=== PATIENT | female | born 1950 | race Caucasian/White ===

== ENCOUNTER 2016-11-05 06:28 | Day surgery (SDC) | payer MEDICARE ==
[~2016-11-05] VITALS: Ht 160 cm; Wt 52.0 kg
[~2016-11-05 06:28] MED LIST: OXYC-360 PO; Z.0.NO CURRENT MEDS
[2016-11-05] MEDS ORDERED: SODIUM CHLOR 0.9% 1000 ML INJ 1,000 ML IV SCH (07:00)
[2016-11-05] MEDS ORDERED: MULT-65 PO (07:04)
[2016-11-05 07:05] VITALS: BP 176/72; PULSE 80; RESP 16; TEMP 98; O2SAT 98
[2016-11-05] MEDS ORDERED: ASPI1TAB93 (07:05)
[2016-11-05] MEDS ORDERED: HEPARIN-NS/PF INJ 500 ML ONE (07:58)
[2016-11-05] MEDS ORDERED: MIDAZOLAM HCL 2 MG/2 ML VIAL ONE (08:01)
[2016-11-05] MEDS ORDERED: MISC INFORMATION XX ONE (09:15)
[2016-11-05] MEDS ORDERED: BACITRACIN OINT 0.9 GM PKT TOP ONE (09:15)
[2016-11-05] MEDS ORDERED: LORazepam 2 MG/ML VIAL IV PRN (09:15)
[2016-11-05] MEDS ORDERED: LIDOCAINE HCL 1% 50 ML VIAL INFIL PRN (09:15)
[2016-11-05] MEDS ORDERED: ONDANSETRON HCL 4 MG/2 ML VIAL IV PRN (09:15)
[2016-11-05] MEDS ORDERED: ATROPINE SULFATE 1 MG/ML VIAL IV PRN (09:15)
[2016-11-05] MEDS ORDERED: SODIUM CHLOR 0.9% 250 ML INJ 250 ML IV PRN (09:15)
--- NOTE | 2016-11-05 09:25 | MA ---
cc: HELIO YOUNG MD DATE: 11/05/2016 The patient was prepped and draped in usual fashion. A 6 sheath was inserted percutaneously in the right femoral artery, 7 sheath was inserted percutaneously in the right femoral vein. Right heart cath was done with a flow-directed catheter. Coronary angiography was done with Olga preformed catheters in the left ventriculogram was done with pigtail catheters. RESULTS 1. Right atrial pressure was 3, right ventricular pressure was 25/0, wedge pressure was 9. Pulmonary artery pressure was 17/5. LV pressure was 151/4. There was really no gradient across the mitral valve. Aortic pressure was 150/67 and a gradient was present across the aortic valve. CORONARY ANGIOGRAPHY Left main coronary was normal, left anterior descending artery was normal throughout its course. Left circumflex artery was normal throughout its course. The right coronary was anatomically dominant and normal throughout its course. Left ventriculography demonstrated normal left ventricle size with an EF estimated at 60%, +2 mitral regurgitation was noted. CONCLUSION The patient demonstrates moderate mitral regurgitation with preserved PA pressures. Mitral valve repair will be discussed with cardiovascular surgery. MD MIREYA Jenkins/MJ /9:09 AM /9:17 AM
--- NOTE | 2016-11-05 09:37 | CATHPROC ---
[employer] HIS Report Study Information Study Number Admission Scheduled Start Study Start [id number] Nov 05 2016 6:28AM 11/05/2016 Nov 05 2016 7:54AM [place] Service Cardiac Catheterization Admit Source Facility Department Other [facility] - Angle Roll Operator Physician and Clinical Staff Initial Vince Camargo Personal ChefPaulina Guzman,HIMA Personal Chef Pam Perez RN Recorder Desi Antoine,RT(R) (BS) Scrub Angel Gonzales RCIS(BS) Procedures Performed Procedure Location (Site) Vessel Name Angiogram LV LV Ventricle Coronary Angiograms LCA Left Coronary Coronary Angiograms RCA Right Coronary Equipment Time Division Order Analyst Description Size Mfg Part Number Used/Scraped [id number] 08:05 CAMPOS PEREZ SWAN BULMARO CATHETER FR 7 Used *[id number] TRANSDUCER, TRUWAVE [id number] 08:05 CAMPOS PEREZ * Used W/STOCKCOCK *[id number] TRANSDUCER, TRUWAVE [id number] 08:05 CAMPOS PEREZ * Used W/STOCKCOCK *[id number] [id number] *[id number] [id number] *[id number] [id number] *[id number] 08:05 [employer] INDUSTRIES PACK, CCL CUSTOM * Used *[id number] 08:05 [employer] PACER PEN, SKIN DUAL W/ RULER * Used *[id number] 08:32 [employer] MEDICAL SHEATH, FR6.5 PRELUDE 11CM FR 6.5 038ACT Used *[id number] 08:45 [employer] WIRE, 3MMJ .035 180CM 180CM Used *[id number] 08:05 [employer], 3MMJ .035 180CM 180CM Used *[id number] 08:05 NAMIC MANIFOLD, 2 PORT * Used *[id number] 08:05 NAMIC MANIFOLD, 4 PORT * Used *[id number] 08:55 [employer] OMNIPAQUE, 300 MG, 50ML 50ML [id number] Used 08:05 [employer]ED OMNIPAQUE, 350 MG, 100ML 100ML [id number] Used 08:55 [employer]ED OMNIPAQUE, 350 MG, 50ML 50ML [id number] Used [id number] 08:05 KAILUA KONA MEDICAL BLANKET,WARM AIR CCL * Used *[id number] 08:05 TERUMO MEDICAL SHEATH, FR7 TERUMO (10CM) FR 7 Used *[id number] Equipment Model, Serial, Lot Number and Expiration Data Description Model Number Serial Number Lot Number Expiration Date BARBARA, 3MMJ .035 180CM [id number] 07-21-2019 History: Allergies Allergy Reaction No Known Allergies History: Risk Factors Family History of Hypertension Dyslipidemia Previous ME Previous Heart Failure Premature CAD No No No No No Prior Valve Prior PCI Prior CABG Surgery No No No Cerebrovascular Peripheral Artery Chronic Lung On Dialysis Diabetes Disease Disease Disease No No No No No History: Stress Tests Stress or Imaging Studies Performed No History: Other Current Smoker No Labs Hgb (g/dl) Hct (%) WBC (l/cumm) Platelets (thousands) 11.60-17.00 35.00-51.00 4.00-11.00 150.00-450.00 12.7 36.7 5.7 225 Glucose (mg/dl) BUN (mg/dl) Creatinine (mg/dl) BUN:Creatinine (1:x) 74.00-106.00 7.00-18.00 0.50-1.30 10.00-20.00 69 17 0.7 24.3 Na (meq/l) 136.00-145.00 145 INR (PTT:PT) 0.90-1.10 1 CPK-MB (ng/ML) 0.50-3.60 Not Drawn Medication Medication Total Dose (Bolus/Oral) Medication Total Dosage/Unit 1% XYLOCAINE 20 mL VERSED 1 mg ZOFRAN 4 mg Medications (Bolus/Oral) Medication Time Given Dosage/Unit Administered By Reason 1% XYLOCAINE 11/05/2016 8:28:13 AM 20 mL Vince Cuevas 20 mL 1% XYLOCAINE given in lab by Vince Cuevas in Right Groin via Subcutaneous. VERSED 11/05/2016 8:28:22 AM 1 mg Paulina Brito 1 mg VERSED given in lab by Paulina Brito RN in Left Antecubital via Peripheral IV. ZOFRAN 11/05/2016 9:34:56 AM 4 mg Pam Perez 4 mg ZOFRAN given in lab by Pam Perez RN in Left Antecubital via Peripheral IV. Ordered by Vince Capone. Medication (Drip) Medication Time Given Dosage/Unit Concentration/Unit Diluent (ml) Solution IV Solutions 11/05/2016 7:55:29 AM 0 mL (IV) 500 NaCl .9 IV Solutions given in lab by Paulina Brito, RN in Left Antecubital via Peripheral IV. Pump/Drip Demetrio w = 100 ml/hr using NaCl .9. Initial Case Assessment Cardiovascular HR Rhythm NIBP Chest Pain 80 reg 148/71 0 Edema Present Skin color Skin None Normal Warm Dry Circulatory - Lower Extremities Color Lower Right Color Lower Left Normal Normal Neurological State Oriented to time-place- Alert Moves all extremities person Respiration - General Respiration Rate SpO2 (%) (B/min) 17 98 Final Case Assessment Cardiovascular HR Rhythm NIBP Chest Pain 92 reg 160/77 0 Edema Present Skin color Skin None Normal Warm Dry Circulatory - Right Pulses Dorsalis Pedis Femoral 2 3 Scale (0,1,2,3,4,d) Circulatory - Left Pulses Dorsalis Pedis Femoral 2 3 Scale (0,1,2,3,4,d) Circulatory - Lower Extremities Color Lower Right Color Lower Left Normal Normal Neurological State Oriented to time-place- Alert Moves all extremities person Respiration - General Respiration Rate SpO2 (%) (B/min) 15 95 Chronological Log Time Study Chronological Log 7:52:52 Patient arrived via Bed. 7:52:56 Patient Name, D.O.B, / Armband Verified By R.N. 7:53:00 Consent signed by the physician and the patient and verified by the Angle Roll Operator staff. 7:55:05 Pre-op and post- op instructions given; patient acknowledges understanding of instructions. 7:55:06 Verbal Stimulation=2 Physical Stimulation=2 Airway=2 Respiration=2 TOTAL=8. (0=absent, 1=mcdaniel ited, 2=present) 7:55:14 Presedation assessment performed by Angle Roll Operator RN. 7:55:17 Patient has been NPO for More than 6Hrs. 7:55:21 Skin Breakdown none per pt 7:55:24 Patient Warmer Placed on the Table. 7:55:27 Aries Prominences Protected 7:55:28 A # 20 IV was noted in the Antecubital (left). Grade = 0 IV Solutions given in lab by Paulina Brito, RN in Left Antecubital via Peripheral IV. Pump/Dri p Flow = 100 ml/hr using 7:55:29 NaCl .9. 7:55:31 History and physical on the chart or being dictated. Assessment: Initial Case, HR=80 BPM, Rhythm=reg, YHBF=665/71 mmhg, Chest Pain=0, Edema=None, Col or=Normal, Skin = Warm, Dry Lower Right Extremities: Color=Normal 7:55:33 Lower Left Extremities: Color=Normal Neurological: State=Alert, Ox3, MOFFETT Respiration: Resp=17 B/min, SpO2=98 % Vitals capture started with the following parameters, Patient=Adult, Interval=5 min, Initial Pre wrgbv=570 mmHg, 7:57:56 Deflation Rate=5 mmHg, Cuff placed on Right Arm 7:58:32 HR=83 bpm, URBC=949/71 mmhg, SpO2=98.0 %, Resp=13 B/min, Pain=0, Kay=10, Ceron=2 8:00:44 Reference ECG taken 8:03:35 HR=78 bpm, MOHH=550/73 mmhg, SpO2=99.0 %, Resp=18 B/min, Pain=0, Kay=10, Ceron=2 8:08:39 HR=77 bpm, EAYA=168/68 mmhg, SpO2=99.0 %, Resp=15 B/min, Pain=0, Kay=10, Ceron=2 8:09:54 Bilateral groins prepped with 2% chlorhexidine, and with a 3 min. waiting time. 8:13:40 HR=78 bpm, ZAGU=300/66 mmhg, SpO2=99.0 %, Resp=12 B/min, Pain=0, Kay=10, Ceron=2 8:14:10 MD paged 8:16:50 Pressure channel 1 zeroed. 8:16:54 Pressure channel 2 zeroed. 8:18:41 HR=81 bpm, SYNK=828/65 mmhg, SpO2=98.0 %, Resp=17 B/min, Pain=0, Kay=10, Ceron=2 8:21:55 MD arrived 8:23:40 HR=79 bpm, CSLL=111/70 mmhg, SpO2=98.0 %, Resp=18 B/min, Pain=0, Kay=10, Ceron=2 Time Out. Correct patient, correct procedure,correct physician, power injector not loaded with c ontrast with surgical 8:27:32 team present. Time Out Concurred by , individual staff in procedure 8:27:51 Case Start 8:28:13 20 mL 1% XYLOCAINE given in lab by Vince Cuevas in Right Groin via Subcutaneous. 8:28:22 1 mg VERSED given in lab by Paulina Brito RN in Left Antecubital via Peripheral IV. 8:28:41 HR=79 bpm, PDPT=750/63 mmhg, SpO2=98.0 %, Resp=15 B/min, Pain=0, Kay=10, Ceron=2 8:33:25 Access site was Right Femoral Artery. 8:33:37 A SHEATH, FR6.5 PRELUDE 11CM FR 6.5 was advanced into the Fem Art (right) using the Percutan eous technique. 8:33:42 HR=77 bpm, ZPQU=573/68 mmhg, SpO2=96.0 %, Resp=18 B/min, Pain=0, Kay=10, Ceron=2 8:35:27 A SHEATH, FR7 TERUMO (10CM) FR 7 was advanced into the Fem Art (right) using the Percutaneou s technique. 8:35:37 Access site was Right Femoral Vein. 8:36:53 A SWAN BULMARO CATHETER FR 7 was inserted via Fem Vein (right) Recorded Pressure: RA, HR=78, Condition=Condition 1 8:38:09 (Right Atrium) RA Recorded Pressure: RV, HR=80, Condition=Condition 1 8:38:31 (Right Ventricle) RV 26/0/2 8:38:39 HR=76 bpm, DSBO=835/71 mmhg, SpO2=98.0 %, Resp=12 B/min, Pain=0, Kay=10, Ceron=2 Recorded Pressure: PCW, HR=76, Condition=Condition 1 8:39:18 (Pulmonary Capillary Wedge) PCW Recorded Pressure: MPA, HR=78, Condition=Condition 1 8:39:34 (Main Pulmonary Artery) MPA 17//11 Thermo CO: CO=4.1 l/m, HR=77 bpm, Condition=Condition 1. Used in calculation. 8:41:47 Equipment: Description and Size=SWAN BULMARO CATHETER FR 7, Type=[place]ath Probe, CC=0.579 Injectant: Temp=19.0 - 22.0 Celsius, Volume=10.0 ml Thermo CO: CO=4.2 l/m, HR=79 bpm, Condition=Condition 1. Used in calculation. 8:42:13 Equipment: Description and Size=SWAN BULMARO CATHETER FR 7, Type=Bath Probe, CC=0.579 Injectant: Temp=19.0 - 22.0 Celsius, Volume=10.0 ml Thermo CO: CO=4.4 l/m, HR=79 bpm, Condition=Condition 1. Used in calculation. 8:42:43 Equipment: Description and Size=SWAN BULMARO CATHETER FR 7, Type=Bath Probe, CC=0.579 Injectant: Temp=19.0 - 22.0 Celsius, Volume=10.0 ml Thermo CO: CO=3.9 l/m, HR=84 bpm, Condition=Condition 1. Used in calculation. 8:43:12 Equipment: Description and Size=SWAN BULMARO CATHETER FR 7, Type=Bath Probe, CC=0.579 Injectant: Temp=19.0 - 22.0 Celsius, Volume=10.0 ml 8:43:38 [place] Bulmaro Catheter Removed 8:43:40 HR=80 bpm, MQBH=998/69 mmhg, SpO2=99.0 %, Resp=13 B/min, Pain=0, Kay=10, Ceron=2 A JL 4.0 INFINITI CATHETER FR 6 was advanced over a wire. OMNIPAQUE, 350 MG, 100ML 100ML was use d for 8:45:34 injections. Recorded Pressure: Ao, HR=77, Condition=Condition 1 8:46:23 (Aorta) Ao 151/68/103 8:46:53 The LCA was injected and visualized at various angles. OMNIPAQUE, 350 MG, 100ML 100ML used. 8:48:43 HR=80 bpm, PRFI=165/71 mmhg, SpO2=98.0 %, Resp=15 B/min, Pain=0, Kay=10, Ceron=2 8:49:04 Catheter was removed A JR 4.0 INFINITI CATHETER FR 6 was advanced over a wire. OMNIPAQUE, 350 MG, 100ML 100ML was use d for 8:49:05 injections. 8:50:23 The RCA was injected and visualized at various angles. OMNIPAQUE, 350 MG, 100ML 100ML used. 8:51:16 Catheter was removed A PIGTAIL STR INFINITI CATHETER FR 6 was advanced over a wire. OMNIPAQUE, 350 MG, 100ML 100ML wa s used for 8:51:40 injections. Recorded Pressure: LV, HR=85, Condition=Condition 1 8:52:44 (Left Ventricle) LV 160/2/11 8:53:42 HR=82 bpm, XCIE=368/66 mmhg, SpO2=96.0 %, Resp=13 B/min, Pain=0, Kay=10, Ceron=2 8:54:07 The LV was injected at 12 cc/sec for a total of 30. OMNIPAQUE, 350 MG, 50ML 50ML used. Recorded Pressure: LV, Ao, HR=97, Condition=Condition 1 8:54:52 (Left Ventricle) LV 151/4/4, (Aorta) Ao 150/68/106 8:55:35 Catheter was removed 8:55:41 Case End 8:58:20 Catheter(s) removed without difficulty 8:58:34 No case complications noted. 8:58:43 HR=87 bpm, KHLD=022/70 mmhg, SpO2=98.0 %, Resp=14 B/min, Pain=0, Kay=10, Ceron=2 8:58:51 Cine recording checked. 8:58:54 Bedside Report will be given. 8:59:00 A Left and Right Heart Cath was performed. 9:03:44 HR=83 bpm, MPMU=845/66 mmhg, SpO2=99.0 %, Resp=15 B/min, Pain=0, Kay=10, Ceron=2 9:07:34 Sheath removed; pressure applied to access site. artery 9:08:41 HR=88 bpm, KYHX=167/73 mmhg, SpO2=99.0 %, Resp=20 B/min, Pain=0, Kay=10, Ceron=2 9:13:40 HR=82 bpm, KVNY=107/79 mmhg, SpO2=98.0 %, Resp=12 B/min, Pain=0, Kay=10, Ceron=2 9:18:11 Sheath removed; pressure applied to access site. vein 9:18:41 HR=81 bpm, YARJ=382/78 mmhg, SpO2=99.0 %, Resp=14 B/min, Pain=0, Kay=10, Ceron=2 9:23:42 HR=89 bpm, SLGI=893/76 mmhg, SpO2=97.0 %, Resp=14 B/min, Pain=0, Kay=10, Ceron=2 9:28:46 HR=84 bpm, SHOR=760/65 mmhg, SpO2=97.0 %, Resp=14 B/min, Pain=0, Kay=10, Ceron=2 9:33:43 HR=92 bpm, DMQE=265/77 mmhg, SpO2=95.0 %, Resp=15 B/min, Pain=0, Kay=10, Ceron=2 Assessment: Final Case, HR=92 BPM, Rhythm=reg, OCEO=263/77 mmhg, Chest Pain=0, Edema=None, Col or=Normal, Skin = Warm, Dry Right Pulses: Pankaj Ped=2, Femoral=3 Left Pulses: Pankaj Ped=2, Femoral=3 9:34:40 Lower Right Extremities: Color=Normal Lower Left Extremities: Color=Normal Neurological: State=Alert, Ox3, MOFFETT Respiration: Resp=15 B/min, SpO2=95 % 9:34:56 4 mg ZOFRAN given in lab by Pam Perez, RN in Left Antecubital via Peripheral IV. O rdered by Vince Cuevas. 9:35:45 Vitals capture stopped. 9:36:42 Sterile dressing applied to site 9:36:43 No case complications noted. 9:36:44 Cine recording checked. 9:36:46 Bedside Report will be given. 9:36:50 Contrast Scanned 9:36:53 A Left and Right Heart Cath was performed. 9:36:56 Patient moved to stretcher 9:37:15 Clinical correlaton risk stratification. End Study - Contrast Media Used In Study Contrast Total Opened (mL) Total Used (mL) Total Wasted (mL) Omnipaque 75 75 0 End Study - Maximum Contrast Load Max Contrast Load (mL) 371.4 End Study - Radiation Exposure Fluoro Time (minutes) 2.5 End Study - Patient Disposition Complications Transferred To Interventional Outcome No Angle Roll Operator Holding No attempt made
[2016-11-05] MEDS ORDERED: IOHEXOL 350 MG/ML 100 ML BTL (for Cath Lab) OTHER ONE (14:16)
== END 2016-11-05 13:40 | disposition home or self-care (01) ==
LOC: HDOC 06:28 → HDIC 06:29 → HDOC 13:40
PROVIDERS: ATTEND Internal Medicine Cardiovascular Disease
DX: I34.0 Nonrheumatic mitral (valve) insufficiency (principal); R01.1 Cardiac murmur, unspecified; K21.9 Gastro-esophageal reflux disease without esophagitis; H26.9 Unspecified cataract; M79.672 Pain in left foot; Z79.1 Long term (current) use of non-steroidal anti-inflammatories (NSAID); Z79.899 Other long term (current) drug therapy
CPT/HCPCS: 93460; C1769; C1893; J1644; J2250; J2405; J7030; Q9967

== ENCOUNTER 2017-10-22 05:36 | Inpatient (IN) ==
[2017-10-22] MEDS ORDERED: Insulin Regular (For Infusion) 100 UNIT in Sodium Chlor 0.9% Inj 99 ML IV.CONT PRN ×2 (05:59→11:39)
[2017-10-22] MEDS ORDERED: ceFAZolin Inj 2,000 MG in Sodium Chlor 0.9% Inj 80 ML IV.SIG SCH (06:00)
[2017-10-22] MEDS ORDERED: Chlorhexidine 4% Topical 120 APPLIC/120 ML Bottle TOPICAL SCH (06:00)
[2017-10-22] MEDS ORDERED: Metoprolol Tartrate 25 MG Tablet PO SCH (06:15)
[2017-10-22] MEDS ORDERED: ceFAZolin 2 GM Premix Inj 0 GM/0 ML PIGGYBACK IV.SIG ONE (06:15)
[2017-10-22] MEDS ORDERED: Chlorhexidine Gluconate 2% 1 Pack (2 Cloths) TOPICAL SCH (06:15)
[2017-10-22] MEDS ORDERED: Heparin - SQ 10,000 UNITS/ML Vial ONE (06:16)
[2017-10-22] MEDS ORDERED: ceFAZolin 2 GM Premix Inj 2 GM/50 ML PIGGYBACK IV.SIG ONE (06:17)
[2017-10-22] MEDS ORDERED: MethylPREDNISolone Sod Succinate Inj 125 MG/2 ML Vial ONE (06:17)
[2017-10-22] MEDS ORDERED: Sodium Chlor 0.9% Inj 20 ML, Bupivacaine Liposo PF 1.3% Inj 20 ML, Dexamethasone PF Inj... IRRIGATION ONE ×8 (06:45→07:00)
[2017-10-22] MEDS ORDERED: fentaNYL Citrate Inj 1,000 MCG/20 ML Vial ONE (06:49)
[2017-10-22] MEDS ORDERED: Sodium Chlor 0.9% Inj 500 ML IV.SIG SCH (07:00)
[2017-10-22] MEDS ORDERED: Potassium Chlor 40 mEq Premix 40 MEQ/100 ML PIGGYBACK ONE (07:20)
[2017-10-22] MEDS ORDERED: Calcium Chloride Inj 1 GM/10 ML Syringe ONE (07:21)
[2017-10-22] MEDS ORDERED: Heparin 10,000 UNITS/10 ML Vial (for IV use) ONE (07:21)
[2017-10-22] MEDS ORDERED: Albumin Human 25% Inj 50 ML IV.SIG ONE (07:22)
[2017-10-22] MEDS ORDERED: Magnesium Sulfate Inj 2 GM in Sodium Chlor 0.9% Inj 96 ML IV.SIG PRN ×4 (11:39)
[2017-10-22] MEDS ORDERED: RESP: Racemic Epinephrine 2.25% 0.5 ML Neb NEB PRN (11:39)
[2017-10-22] MEDS ORDERED: Post-op Orders (for Pharmacy) OTHER STA (11:39)
[2017-10-22] MEDS ORDERED: Clevidipine Inj 25 MG/50 ML VIAL IV.CONT PRN (11:39)
[2017-10-22] MEDS ORDERED: hydrALAZINE HCl Inj 20 MG/ML Vial IV.PUSH PRN (11:39)
[2017-10-22] MEDS ORDERED: Albumin Human 5% Inj 250 ML IV.SIG PRN (11:39)
[2017-10-22] MEDS ORDERED: fentaNYL Citrate Inj 100 MCG/2 ML Ampul IV.PUSH PRN (11:39)
[2017-10-22] MEDS ORDERED: Calcium Chloride Inj 1 GM/10 ML Syringe IV.PUSH PRN (11:39)
[2017-10-22] MEDS ORDERED: Dextrose 50% in Water 50 ML Vial IV.PUSH PRN (11:39)
[2017-10-22] MEDS ORDERED: Calcium Chloride Inj 1 GM in Sodium Chlor 0.9% Inj 100 ML IV.SIG PRN (11:39)
[2017-10-22] MEDS ORDERED: Potassium Chlor 20 mEq Premix 20 MEQ/100 ML PIGGYBACK IV.SIG PRN ×3 (11:39)
[2017-10-22] MEDS ORDERED: Ketorolac Inj 30 MG/ML (IVP) Vial IV.PUSH PRN (11:39)
--- NOTE | 2017-10-22 11:55 | P.OP ---
- Preoperative Diagnosis (1) Mitral regurgitation (2) Diastolic heart failure - Postoperative Diagnosis (1) Diastolic heart failure (2) Mitral regurgitation Date of procedure: 10/22/17 Procedure: Minimally invasive MV repair with a 28 st Klever Tiago annuloplasty ring NITO Left ultrasound-guided femoral artery and venous access with Perclose closure Implants: 28 Tiago annuloplasty ring Anesthesia: COOKIE Surgeon: Vanita Kapoor MD Promotions Specialist: Efrain Armenta Pathology: none sent Operation and Findings: Standard monitoring lines and Aguayo catheter were placed. General anesthesia was induced. The patient was prepped and draped in a sterile fashion. A 6 cm right anterior thoracotomy was performed in the 4th intercostal space. An Balbir retractor was placed followed by a small chest retractor. The pericardium was opened and a pericardial sling was created using interrupted 0 silk sutures. A small 1 cm incision was made at the 7th intercostal space and an LV vent and CO2 line were placed through this access port. The aorta was dissected posteriorly for crossclamp placement. The left femoral artery and vein were percutaneously accessed using ultrasound guidance. The patient was heparinized for cardiopulmonary bypass. The left femoral artery was cannulated with a 15F [employer] arterial cannula. The left femoral vein was cannulated with a 21 [employer] cannula under NITO guidance. Two Perclose devices were placed in the artery for later closure. Antegrade Custodiol cardioplegia was employed. The patient was placed on cardiopulmonary bypass. [place] groove was dissected using electrocuatery and blunt dissection. An aortic cross-clamp was applied and the heart was arrested using cold Custodiol cardioplegia delivered through a 14F catheter. The left atrium was opened and the mitral valve was exposed. The valve was analyzed and both leaflets were redundant with some prolapse. In order to increase the zone of coaptation, an annuloplasty was performed using a [address] Klever [place] ring. This was performed using interrupted 4-0 Ticron horizontal mattress sutures. The repair was tested and found to be excellent. The left atrium was closed using running 4-0 Prolene suture. The patient systemically rewarmed and placed in Trendelenburg position. The cross clamp was removed, with the aorta and LV vented. The patient was easily weaned from cardiopulmonary bypass. Decannulation was carried out without incident and the artery was secured with the Perclose sutures. The vein was controlled with manual compression. Protamine was given. There was no adverse reaction. Intraoperative NITO following the procedure showed a good repair with trace to 1+ MR and no PEPE. LV function was preserved. Wound was checked for hemostasis was obtained using electrocautery. A 32F right pleural chest tube was placed and secured to the skin with a 0 silk suture. The ribs were approximated using a 1 Vicryl suture. The subcutaneous tissue was closed using a running 3-0 Monocryl suture. The skin was closed with 4-0 Monocryl. Sterile dressings were placed. At the end of the operation, all sponge, instruments, and needle counts were correct. The patient was transferred to the CVICU in stable condition.
[2017-10-22] MEDS ORDERED: Tranexamic Acid Inj 1,000 MG/10 ML Ampul IV.PUSH ONE (12:00)
[2017-10-22] MEDS ORDERED: Protamine Sulfate Inj 250 MG/25 ML Vial IV.CONT ONE (12:00)
[2017-10-22] MEDS ORDERED: Phenylephrine/NS 1000 MCG/10ML Syringe IV.PUSH ONE (12:00)
[2017-10-22] MEDS ORDERED: Heparin - SQ 10,000 UNITS/ML Vial OTHER ONE (12:00)
[2017-10-22] MEDS ORDERED: Dextrose 5% in Water Inj 100 ML IV.SIG ONE (12:00)
[2017-10-22] MEDS ORDERED: Calcium Chloride Inj 1 GM/10 ML Syringe IV.PUSH ONE (12:00)
--- NOTE | 2017-10-22 13:05 | XR ---
EXAM DATE: 10/22/2017 1:02 PM EDT AGE/SEX: 67 years / Female INDICATIONS: Post-op mini MVR. CLINICAL DATA: This is the patient's initial encounter. Patient reports that signs and symptoms have been present for 1 day and indicates a pain score of Nonresponsive. MEDICAL/SURGICAL HISTORY: None. None. COMPARISON: [facility] [place] 2V PA&LAT, 10/19/2017. . FINDINGS: The cardiac silhouette is normal in transverse diameter. A right chest tube is in place. There is no evidence of pneumothorax. A right sided internal jugular vein catheter is in place without pneumothor ax with its tip in the superior vena cava. There is no evidence of pneumothorax. CONCLUSION: Postsurgical changes as above. No acute cardiopulmonary disease. Electronically signed by: Vince Barrientos MD 10/22/2017 1:04 PM EDT
[2017-10-22] MEDS: Mupirocin 2% Nasal Oint Topical Syringe EACH NARE SCH (13:10)
[2017-10-22] MEDS: Potassium Chloride Inj 20 MEQ in Sodium Chlor 0.9% Inj 100 ML IV.SIG PRN ×2 (13:18→19:29)
[2017-10-22] MEDS: Amiodarone 200 MG Tablet PO SCH ×2 (14:06→21:36)
--- NOTE | 2017-10-22 14:22 | P.PNCV ---
- Note Subjective/Hospital Course: 67/ female seen in the office by Dr Kapoor , pt has a history of severe MR , underwent cardiac cath by Dr Cuevas , non obstructive CAD, EF 60% severe MR , diastolic heart failure PMH: severe MR, hx of CAD prior stent? GERD electively admitted for surgery 10/22 Minimally invasive MV repair with a 28 st Klever Tiago annuloplasty ring NITO Left ultrasound-guided femoral artery and venous access with Perclose closure Objective: Vital Signs - 24 hr 10/22/17 06:18 10/22/17 12:24 10/22/17 12:30 Temperature 98.1 F 97.5 F L Pulse Rate 78 96 H 99 H Respiratory Rate 20 18 Blood Pressure 154/74 H 153/68 H Pulse Oximetry 97 98 10/22/17 12:37 10/22/17 13:00 10/22/17 13:07 Temperature 97.5 F L Pulse Rate 99 H 96 H Respiratory Rate 18 Blood Pressure 153/68 H Pulse Oximetry 99 98 Labs: Laboratory Results - last 12 hr 10/22/17 10/22/17 06:32 13:53 POC Glucose 115 H Blood Type A Positive Antibody Screen Negative MTS Gel Crossmatch See Detail Bld Prod Order Comment
--- NOTE | 2017-10-22 14:32 | P.DCO ---
- Diagnosis (2) Mitral regurgitation - Home Health Nursing Order: Signs/symptoms of disease process, CHF education, Wound care and dressing changes, Nursing assessment with vital signs Instructions: Heart and Vascular Surgery patients *Special attention to sternal dressing Mandatory frequency Assess and evaluation, 4 days in a row The next week 3X week 2 times a week for 4 weeks 1 time a week for 5 weeks Schedule Heart and Vascular patients for full 60 day certification period Initial visit Review Open Heart Surgery Discharge Instructions (Sternal precautions, Activity, Elastic hose, Incision care, Driving, Incentive spirometry, Smoking, [place], Work and other) Need Betadine to paint incision Medication reconciliation Importance of follow up care/ check on appointments Make calendar record temperature daily When to call [facility] nurse, review instructions, phone list Incentive Spirometry, demonstration Visit 1- Begin discharge instruction for patient family and/ or caregiver using teach back method- Signs and symptoms of infection Disease characteristics Medicines and side effects Foods and nutrition/ appetite Infection control/ hand washing/ hygiene Visit 2- Continue teaching Discharge instructions- include additional information on smoking cessation , sternal dressing (sternal vac) Visit 3- Continue teaching- Cough and deep breathing, incision monitoring. Choose my plate Visit 4- Continue teaching- Discuss limitations Discuss how they are feeling Discuss progress toward goals Remaining visits- continue teaching and monitoring For any questions please call : Thursday 8am-5pm Heart & Vascular Surgery Office ( Dr. Gupta & Dr. Kapoor), After Hours / Nights (5pm -8am) Weekends and Holidays Please call [facility] Cardiac Intermediate Care Unit (CIC) Charge Nurse Incentive spirometry Q1 hr x 10, while awake, also use acapella device hourly whole awake chest Bone Precautions: NO pushing or pulling, ( pt must use chest pillow to support chest with all activities and with coughing All females to wear sternal bra , launder as needed Daily incision care: ok to shower daily, no tub bath. Wash all incisions with liquid dial soap, clean wash cloth to each site, rinse and pat dry. Observe for any signs of infection, such as drainage which is dark yellow, terrazas, green or foul smelling. Immediately report to the surgeon any drainage from the chest incision, or legs, and for any abnormal drainage from the chest tube sites. Notify surgeon if any temp >101.5 degrees F. When specialty dressing removed/ or if you do not have one, continue to shower daily as above, then rinse and pat incision dry and paint with betadine daily x 5 days. Allow steri strips to fall off if you have any. Avoid lotions, creams, salves, oils, etc. for the first month For Dr. Kapoor patients , please obtain CBC, BMP, PA & Lat CXR in 2 weeks, results to Dr. Kapoor ( prescription will be given) ( ) (Tele: [phone]) , Valve replacement pts will need 2decho in 2 weeks with results to Dr. Kapoor . 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 Gupta & Dr. Kapoor), After Hours / Nights (5pm -8am) Weekends and Holidays Please call [facility] Cardiac Intermediate Care Unit (CIC) Charge Nurse - Certification I have seen patient Sudha Gilman on 10/22/17. My clinical findings support the need for the requested home health care services because: Deconditioned with increased weakness I certify that my clinical findings support that this patient is homebound because: Post-op weakness (PT/INR in two days, goal 2-3 for 6 weeks ) (2) Mitral regurgitation Qualifiers: Cardiac valve disease etiology: nonrheumatic Qualified Code(s): I34.0 - Nonrheumatic mitral (valve) insufficiency
[2017-10-23] MEDS: Mupirocin 2% Nasal Oint Topical Syringe EACH NARE SCH ×2 (01:51→21:23)
[2017-10-23 04:36] LABS: Hematocrit 32.7 % (35.0-46.0); Hemoglobin 10.9 gm/dL (11.6-15.3); Mean Corpuscular HGB Conc 33.2 % (32.0-36.0); Mean Corpuscular Volume 99.3 fL (80.0-100.0); Mean Platelet Volume 8.3 fL (7.0-11.0); Platelet Count 136 th/mm3 (150-450); Red Cell Distribution Width 13.7 % (11.6-17.2); White Blood Count 16.9 th/mm3 (4.0-11.0)
--- NOTE | 2017-10-23 04:36 | XR ---
EXAM DATE: 10/23/2017 4:27 AM EDT AGE/SEX: 67 years / Female INDICATIONS: Follow up post CABG. CLINICAL DATA: This is the patient's subsequent encounter. Patient reports that signs and symptoms h ave been present for 4 - 6 days and indicates a pain score of 4/10. MEDICAL/SURGICAL HISTORY: None. CABG. COMPARISON: [facility], CHEST 1V SINGLE AP, 10/22/2017. . FINDINGS: Right chest drainage tube tip remains projected at the apex. Right internal jugular catheter tip at t he cavoatrial junction. Lungs are symmetrically aerated and clear. The heart is stable in configurati on. Both hemidiaphragms well delineated. CONCLUSION: Lines and tubes stable. Lungs are clear. Electronically signed by: Tr Martinez MD 10/23/2017 4:35 AM EDT
[2017-10-23 04:59] LABS: Anion Gap 8 meq/L (5-15); Blood Urea Nitrogen 18 mg/dL (7-18); Calcium 8.1 mg/dL (8.5-10.1); Carbon Dioxide 27.8 meq/L (21.0-32.0); Chloride 106 meq/L (98-107); Glomerular Filtration Rate Greater Than 89 mL/min (>89); Glucose,Random 121 mg/dL (74-106); Potassium 4.3 meq/L (3.5-5.1); Sodium 142 meq/L (136-145)
[2017-10-23] MEDS: Amiodarone 200 MG Tablet PO SCH ×3 (06:33→21:09)
[2017-10-23] MEDS: Metoprolol Inj 5 MG/5 ML Vial IV.PUSH PRN ×2 (07:50→08:16)
--- NOTE | 2017-10-23 08:33 | ECG ---
Date Performed: 10/23/2017 Time Performed: 04:10:42 PTAGE: 67 years EKG: Sinus rhythm . Normal ECG NO PREVIOUS TRACING DOCTOR: Luiz Lockhart Interpretating Date/Time 10/23/2017 08:33:22
[2017-10-23] MEDS ORDERED: Bisacodyl 10 MG Supp RECTAL PRN (08:51)
[2017-10-23] MEDS ORDERED: Sod Phosphate/Sod Biphosphate (Adult) Enema 133 ML Bottle RECTAL PRN (08:51)
[2017-10-23] MEDS ORDERED: Dextrose 50% in Water 50 ML Vial IV.PUSH PRN (08:51)
[2017-10-23] MEDS ORDERED: amLODIPine 5 MG Tablet PO SCH (10:00)
[2017-10-23] MEDS: Multivitamin/Minerals Therapeutic Tablet PO SCH (10:21)
[2017-10-23] MEDS: Insulin NovoLOG Aspart Correctional Sugar Inj SQ SCH ×4 (10:22→22:53)
--- NOTE | 2017-10-23 13:31 | P.PNCV ---
- Note Subjective/Hospital Course: 67/ female seen in the office by Dr Kapoor , pt has a history of severe MR , underwent cardiac cath by Dr Cuevas , non obstructive CAD, EF 60% severe MR , diastolic heart failure PMH: severe MR, hx of CAD prior stent? GERD electively admitted for surgery 10/22 Minimally invasive MV repair with a 28 st Klever [place] annuloplasty ring NITO Left ultrasound-guided femoral artery and venous access with Perclose closure crystalloid 2500cc/ 500cc cell saver 1000cc EBL 10/23 pt up in chair gentle diuresis , BP elevated , on low dose BB and norvasc pain control on ASA, amiodarone will need 6 week coumadin INR goal 2-3 start after chest tube dc Objective: Vital Signs - 24 hr 10/22/17 14:39 10/22/17 17:00 10/22/17 17:16 Temperature 97.6 F Pulse Rate 97 H 95 H Respiratory Rate 20 Blood Pressure 157/74 H Pulse Oximetry 99 99 10/22/17 21:00 10/22/17 21:40 10/23/17 00:00 Temperature 98.4 F 98.6 F Pulse Rate 94 H 80 Respiratory Rate 18 22 Blood Pressure 149/70 H 136/64 Pulse Oximetry 99 99 97 10/23/17 01:00 10/23/17 04:00 10/23/17 05:00 Temperature 97.9 F Pulse Rate 80 78 82 Respiratory Rate 22 Blood Pressure 135/60 Pulse Oximetry 97 98 10/23/17 08:00 10/23/17 08:05 10/23/17 09:00 Temperature 97.7 F Pulse Rate 70 80 Respiratory Rate 18 Blood Pressure 163/74 H Pulse Oximetry 97 99 10/23/17 12:00 Temperature 98.1 F Pulse Rate 84 Respiratory Rate 18 Blood Pressure 139/73 Pulse Oximetry 99 GENERAL: A&O x 3 SKIN: Warm and dry. chest incision intact right upper chest wall HEAD: Normocephalic. EYES: No scleral icterus. No injection or drainage. NECK: Supple, trachea midline. No JVD or lymphadenopathy. CARDIOVASCULAR: Regular rate and rhythm without murmurs, gallops, or rubs. chest tube to 20cm suction , no air leak RESPIRATORY: Breath sounds equal bilaterally. No accessory muscle use. GASTROINTESTINAL: Abdomen soft, non-tender, nondistended. MUSCULOSKELETAL: No cyanosis, or edema. BACK: Nontender without obvious deformity. No CVA tenderness. Labs: Laboratory Results - last 12 hr 10/23/17 10/23/17 10/23/17 01:55 03:58 03:58 WBC 16.9 H RBC 3.30 L Hgb 10.9 L Hct 32.7 L MCV 99.3 MCH 33.0 MCHC 33.2 RDW 13.7 Plt Count 136 L D MPV 8.3 Sodium 142 Potassium 4.3 Chloride 106 Carbon Dioxide 27.8 Anion Gap 8 BUN 18 Creatinine 0.57 Estimated GFR Greater than 89 POC Glucose 113 H Random Glucose 121 H Calcium 8.1 L Magnesium 2.0 10/23/17 10/23/17 07:32 10:09 WBC RBC Hgb Hct MCV MCH MCHC RDW Plt Count MPV Sodium Potassium Chloride Carbon Dioxide Anion Gap BUN Creatinine Estimated GFR POC Glucose 103 160 H Random Glucose Calcium Magnesium Result Diagrams: 10/23/17 03:58 10/23/17 03:58 - Plan (1) S/P mitral valve repair Plan: on ASA , amiodarone , BB gentle diuresis OOB ambulate , pulm toileting will need coumadin for 6 weeks (2) Mitral regurgitation (3) Diastolic heart failure Plan: gentle diuresis (2) Mitral regurgitation Qualifiers: Cardiac valve disease etiology: nonrheumatic Qualified Code(s): I34.0 - Nonrheumatic mitral (valve) insufficiency
--- NOTE | 2017-10-23 15:55 | P.DIET ---
Nutritional Evaluation Type of nutrition evaluation: initial Nutrition screening: [facility] [place] Screening comments: [facility] [place] Diet Education-Coumadin Diet Subjective Subjective Comments: Pt visited and provided w/nutrition education for Coumadin and Vitamin K Objective - Diagnosis MVR - Objective [place] body weight: 53 kg % IBW: 101 Dietitian Reviewed in Medical Record: Current diet, Curent medications, Intake & Output, Labs, Medical history Diet Order: Clear Liquid Objective Comments: 10/22/17 Mitral Valve Repair Assessment Assessment: Pt provided w/diet education for Coumadin and Vitamin K. Pt's questions answered to her satisfaction. Dietitian Contact info provided for additional questions as needed. Recommendations: 1. Pt provided w/diet education for Coumadin and Vitamin K 2. Pt's questions answered to her satisfaction 3. Dietitian Contact info provided for additional questions as needed
[2017-10-23] MEDS: Metoprolol Tartrate 25 MG Tablet PO SCH ×2 (21:09→21:24)
[2017-10-23] MEDS: Docusate Sodium 100 MG Capsule PO SCH (21:09)
[2017-10-24] MEDS: Insulin NovoLOG Aspart Correctional Sugar Inj SQ SCH ×5 (02:53→21:28)
[2017-10-24 05:31] LABS: Baso % (Auto) 0.1 % (0.0-2.0); Hematocrit 29.1 % (35.0-46.0); Hemoglobin 9.9 gm/dL (11.6-15.3); Lymph # (Auto) 1.4 th/mm3 (1.0-4.8); Lymph % (Auto) 7.9 % (9.0-44.0); Mean Corpuscular HGB Conc 34.1 % (32.0-36.0); Mean Corpuscular Hemoglobin 33.9 pg (27.0-34.0); Mean Corpuscular Volume 99.5 fL (80.0-100.0); Mean Platelet Volume 8.5 fL (7.0-11.0); Mono # (Auto) 1.9 th/mm3 (0.0-0.9); Mono % (Auto) 10.5 % (0.0-8.0); Neut # (Auto) 14.6 th/mm3 (1.8-7.7); Neut % (Auto) 81.5 % (16.0-70.0); Platelet Count 121 th/mm3 (150-450); Red Blood Count 2.93 mil/mm3 (4.00-5.30); Red Cell Distribution Width 13.6 % (11.6-17.2); White Blood Count 17.9 th/mm3 (4.0-11.0)
[2017-10-24 05:41] LABS: INR 1.1 Ratio; Prothrombin Time 10.9 sec (9.8-11.6)
[2017-10-24 06:04] LABS: Anion Gap 9 meq/L (5-15); Blood Urea Nitrogen 20 mg/dL (7-18); Calcium 8.2 mg/dL (8.5-10.1); Carbon Dioxide 29.8 meq/L (21.0-32.0); Chloride 98 meq/L (98-107); Glomerular Filtration Rate Greater Than 89 mL/min (>89); Glucose,Random 111 mg/dL (74-106); Magnesium 2.3 mg/dL (1.5-2.5); Potassium 4.2 meq/L (3.5-5.1); Sodium 137 meq/L (136-145)
[2017-10-24] MEDS: Amiodarone 200 MG Tablet PO SCH ×3 (06:09→21:07)
[2017-10-24] MEDS: Multivitamin/Minerals Therapeutic Tablet PO SCH (09:22)
[2017-10-24] MEDS: Docusate Sodium 100 MG Capsule PO SCH ×2 (09:22→21:07)
[2017-10-24] MEDS: Polyethylene Glycol 3350 17 GM Packet PO SCH (09:23)
--- NOTE | 2017-10-24 11:39 | P.PNCV ---
- Note CVT: Post Op Day #: 2 Subjective/Hospital Course: 67/ female seen in the office by Dr Kapoor , pt has a history of severe MR , underwent cardiac cath by Dr Cuevas , non obstructive CAD, EF 60% severe MR , diastolic heart failure PMH: severe MR, hx of CAD prior stent? GERD electively admitted for surgery 10/22 Minimally invasive MV repair with a [address] st Klever [place] annuloplasty ring NITO Left ultrasound-guided femoral artery and venous access with Perclose closure crystalloid 2500cc/ 500cc cell saver 1000cc EBL 10/23 pt up in chair gentle diuresis , BP elevated , on low dose BB and norvasc pain control on ASA, amiodarone will need 6 week coumadin INR goal 2-3 start after chest tube dc 10/24/17 Doing very well, no complaints Objective: Vital Signs - 24 hr 10/23/17 12:00 10/23/17 13:00 10/23/17 15:59 Temperature 98.1 F 98.8 F Pulse Rate 84 80 80 Respiratory Rate 18 16 Blood Pressure 139/73 148/68 H Pulse Oximetry 99 10/23/17 16:00 10/23/17 17:00 10/23/17 19:00 Temperature 98.8 F Pulse Rate 80 88 Respiratory Rate Blood Pressure 148/68 H Pulse Oximetry 10/23/17 20:00 10/23/17 20:17 10/23/17 21:00 Temperature 98.8 F Pulse Rate 80 88 100 H Respiratory Rate 14 Blood Pressure 116/56 L Pulse Oximetry 94 L 10/23/17 22:00 10/23/17 23:00 10/24/17 00:00 Temperature 97.8 F Pulse Rate 86 76 78 Respiratory Rate Blood Pressure 105/50 L Pulse Oximetry 93 L 10/24/17 01:00 10/24/17 02:00 10/24/17 03:00 Temperature Pulse Rate 84 93 H 82 Respiratory Rate Blood Pressure Pulse Oximetry 10/24/17 04:00 10/24/17 05:00 10/24/17 06:00 Temperature 97.7 F Pulse Rate 80 75 75 Respiratory Rate Blood Pressure 101/49 L Pulse Oximetry 95 10/24/17 07:00 10/24/17 08:00 10/24/17 09:38 Temperature 97.9 F Pulse Rate 72 72 75 Respiratory Rate 16 20 Blood Pressure 92/46 L Pulse Oximetry 98 Labs: Laboratory Results - last 12 hr 10/24/17 10/24/17 10/24/17 02:46 04:40 04:40 WBC 17.9 H RBC 2.93 L Hgb 9.9 L Hct 29.1 L MCV 99.5 MCH 33.9 MCHC 34.1 RDW 13.6 Plt Count 121 L MPV 8.5 Neut % (Auto) 81.5 H Lymph % (Auto) 7.9 L Owen % (Auto) 10.5 H Eos % (Auto) 0.0 Baso % (Auto) 0.1 Neut # (Auto) 14.6 H Lymph # (Auto) 1.4 Owen # (Auto) 1.9 H Eos # (Auto) 0.0 Baso # (Auto) 0.0 WBC Differential . Differential Comment Auto diff final PT INR Sodium 137 Potassium 4.2 Chloride 98 D Carbon Dioxide 29.8 Anion Gap 9 BUN 20 H Creatinine 0.64 Estimated GFR Greater than 89 POC Glucose 115 H Random Glucose 111 H Calcium 8.2 L Magnesium 2.3 10/24/17 04:40 WBC RBC Hgb Hct MCV MCH MCHC RDW Plt Count MPV Neut % (Auto) Lymph % (Auto) Owen % (Auto) Eos % (Auto) Baso % (Auto) Neut # (Auto) Lymph # (Auto) Owen # (Auto) Eos # (Auto) Baso # (Auto) WBC Differential Differential Comment PT 10.9 INR 1.1 Sodium Potassium Chloride Carbon Dioxide Anion Gap BUN Creatinine Estimated GFR POC Glucose Random Glucose Calcium Magnesium Result Diagrams: 10/24/17 04:40 10/24/17 04:40 Imaging: Chest X-Ray 10/23/17 05:00 CONCLUSION: Lines and tubes stable. Lungs are clear. Cardiovascular: RRR Telemetry: NSR Pulmonary: CTA GI/: NABS Incision: dry and intact CT: ~60ml/6 hrs - Plan (1) S/P mitral valve repair Plan: on ASA , amiodarone , BB gentle diuresis OOB ambulate , pulm toileting will need coumadin for 6 weeks (2) Mitral regurgitation (3) Diastolic heart failure Plan: gentle diuresis Remove chest tube Hold BB for low BP Encourage ambulation, up to chair Start coumadin daily INR (2) Mitral regurgitation Qualifiers: Cardiac valve disease etiology: nonrheumatic Qualified Code(s): I34.0 - Nonrheumatic mitral (valve) insufficiency
[2017-10-24] MEDS: Metoprolol Tartrate 25 MG Tablet PO SCH ×3 (12:11→21:29)
[2017-10-24] MEDS: Mupirocin 2% Nasal Oint Topical Syringe EACH NARE SCH ×2 (12:11→21:05)
[2017-10-25 04:43] LABS: INR 1.5 Ratio
[2017-10-25 04:49] LABS: Prothrombin Time 15.2 sec (9.8-11.6)
[2017-10-25] MEDS: Amiodarone 200 MG Tablet PO SCH ×2 (05:22→13:44)
[2017-10-25] MEDS: Insulin NovoLOG Aspart Correctional Sugar Inj SQ SCH ×2 (08:01→11:18)
[2017-10-25] MEDS: Mupirocin 2% Nasal Oint Topical Syringe EACH NARE SCH ×2 (08:02→08:37)
[2017-10-25] MEDS: Multivitamin/Minerals Therapeutic Tablet PO SCH (08:56)
[2017-10-25] MEDS: Polyethylene Glycol 3350 17 GM Packet PO SCH (08:57)
[2017-10-25] MEDS: Docusate Sodium 100 MG Capsule PO SCH (08:57)
[2017-10-25] MEDS: Metoprolol Tartrate 25 MG Tablet PO SCH (08:57)
--- NOTE | 2017-10-25 12:10 | P.DS ---
Date of admission: 10/22/17 05:36 Primary care physician: Royal Cisse MD Attending physician on discharge: Vanita Kapoor Anticipated date of discharge: 10/25/17 Brief History from admission: 67Y/O FEMALE PRESENTS WITH SEVERE MITRAL REGURGITATION AND EXERTIONAL DYSPNEA. DS: Diagnosis - Discharge Diagnosis (1) S/P mitral valve repair Status: Acute (2) Mitral regurgitation Status: Acute (3) Diastolic heart failure Status: Acute DS: Medications - Discharge Medications Prescriptions: amiodarone 200 mg PO BID 14 Days #28 tab oxycodone-acetaminophen 1 tab PO Q3H PRN 3 Days tab PRN Reason: Pain Scale 1 To 5 warfarin [Coumadin] 2.5 mg PO DAILY #30 tab DS: Summary Hospital Course: 67/ female seen in the office by Dr Kapoor , pt has a history of severe MR , underwent cardiac cath by Dr Cuevas , non obstructive CAD, EF 60% severe MR , diastolic heart failure PMH: severe MR, hx of CAD prior stent? GERD electively admitted for surgery 10/22 Minimally invasive MV repair with a [address] st Klever [place] annuloplasty ring NITO Left ultrasound-guided femoral artery and venous access with Perclose closure crystalloid 2500cc/ 500cc cell saver 1000cc EBL 10/23 pt up in chair gentle diuresis , BP elevated , on low dose BB and norvasc pain control on ASA, amiodarone will need 6 week coumadin INR goal 2-3 start after chest tube dc 10/24/17 Doing very well, no complaints Coumadin will continue for 4-6 weeks for a target INR 2-2.5. No beta beto due to low BP - Time Spent with Patient Total time spent providing and/or coordinating discharge services: Greater than 30 minutes - Quality: AMI Clinical Trial Participant: No Exam Vital signs: Vital Signs 10/24/17 13:00 10/24/17 14:00 10/24/17 15:00 Temperature Pulse Rate 68 70 70 Respiratory Rate Blood Pressure Pulse Oximetry 10/24/17 15:31 10/24/17 16:00 10/24/17 19:00 Temperature 98.5 F Pulse Rate 76 73 Respiratory Rate 16 Blood Pressure 130/61 Pulse Oximetry 94 L 94 L 10/24/17 20:00 10/24/17 20:35 10/24/17 21:00 Temperature 99.2 F Pulse Rate 74 81 Respiratory Rate 16 Blood Pressure 114/56 L Pulse Oximetry 97 97 10/24/17 22:00 10/24/17 22:43 10/24/17 23:00 Temperature 98 F Pulse Rate 74 78 67 Respiratory Rate 16 Blood Pressure 105/52 L Pulse Oximetry 98 10/25/17 00:00 10/25/17 01:00 10/25/17 02:00 Temperature Pulse Rate 68 69 69 Respiratory Rate Blood Pressure Pulse Oximetry 10/25/17 03:00 10/25/17 04:00 10/25/17 05:00 Temperature 98.3 F Pulse Rate 69 74 72 Respiratory Rate 16 Blood Pressure 109/54 L Pulse Oximetry 100 10/25/17 06:00 10/25/17 07:00 10/25/17 07:20 Temperature Pulse Rate 74 73 Respiratory Rate Blood Pressure Pulse Oximetry 95 10/25/17 08:00 10/25/17 09:00 10/25/17 10:00 Temperature 98.6 F Pulse Rate 76 72 76 Respiratory Rate 16 Blood Pressure 119/58 L Pulse Oximetry 94 L 10/25/17 11:00 Temperature Pulse Rate 75 Respiratory Rate Blood Pressure Pulse Oximetry Intake & Output 10/24/17 10/25/17 10/25/17 18:59 06:59 18:59 Intake Total 500 / 500 480 / 480 Output Total 275 / 275 750 / 750 Balance 225 / 225 -270 / -270 Weight 53 kg Intake: Oral 500 / 500 480 / 480 Output: Urine 275 / 275 750 / 750 Other: # Voids 1 Date of Last Bowel Movement 10/21/17 10/25/17 # Bowel Movements 1 1 - Constitutional no acute distress - Routine HEENT Exam Head: Present: normocephalic, atraumatic Eye: Present: EOMI, PERRL, normal accommodation ENT: Present: mucous membranes moist - Routine Neck Exam Present: supple, full ROM - Routine Chest/Breast/Axilla Exam Comments: Incision - dry and intact - Routine Respiratory Exam Present: CTA bilaterally - Routine Cardiovascular Exam Present: RRR - Routine Abdominal Exam Present: soft, normoactive bowel sounds - Routine Extremities Exam Present: pulses intact - Routine Skin Exam Present: intact - Routine Neurological Exam Present: alert, oriented X3, CN II-XII intact Results Procedures completed during hospitalization: Minimally-invasive MV repair with a 28 [place] ring NITO Labs on day of discharge: Labs from last 24 hours 10/25/17 10/25/17 10/25/17 10:50 07:23 04:16 PT 15.2 H INR 1.5 POC Glucose 91 96 MTS Gel Crossmatch 10/24/17 10/24/17 10/24/17 19:43 16:56 12:07 PT INR POC Glucose 110 119 H 159 H MTS Gel Crossmatch 10/22/17 06:32 PT INR POC Glucose MTS Gel Crossmatch See Detail - Impressions ITS Impressions Chest X-Ray 10/23/17 05:00 CONCLUSION: Lines and tubes stable. Lungs are clear. Discharge Plan - Discharge Disposition Patient Disposition: W/Home Health Service - Discharge Condition Condition: Good - Discharge Order Discharge Orders: Discharge Order (Routine); Ordered 10/25/17 Ordered By: Vanita Kapoor - Discharge Details Anticipated Discharge Date: 10/25/17 - Physicians Team Primary Care Provider: Royal Cisse Attending Provider: Vanita Kapoor Other Providers: [facility] - Rxs /Orders / Referrals /Forms Prescriptions: New amiodarone 200 mg Tablet 200 mg PO BID 14 Days Qty: 28 RF: 0 aspirin 81 mg Tablet,Chewable 81 mg PO DAILY RF: 0 docusate sodium [DOK] 100 mg Capsule 100 mg PO BID RF: 0 oxycodone-acetaminophen 5-325 mg Tablet 1 tab PO Q3H PRN (Reason: Pain Scale 1 To 5) 3 Days RF: 0 warfarin [Coumadin] 2.5 mg Tablet 2.5 mg PO DAILY Qty: 30 RF: 1 Continue gvfpeociughj-wke-roan-FA-vit K [Adults Multivitamin] 18 mg iron-400 mcg-25 mcg Tablet 1 tab PO DAILY Ambulatory Orders / Order Sets / DME: Echo 2D Comp with doppler (Routine) Timeframe: 2 Weeks Location: Determined by Patient Ordered By: Niyah Mcghee XR chest 2V PA&LAT (Routine) Timeframe: 2 Days Location: Determined by Patient Ordered By: Niyah Mcghee Basic Metabolic Panel (Routine) Timeframe: 2 Weeks Location: Determined by Patient Ordered By: Niyah Mcghee Complete Blood Count NO Diff (Routine) Timeframe: 2 Weeks Location: Determined by Patient Ordered By: Niyah Mcghee Prothrombin Time INR (Routine) Location: Determined by Patient Ordered By: Niyah Mcghee Referrals: Vince Cuevas MD [INTERVENTIONAL CARDIOLOGY] - See Instructions ( Your appointment has been scheduled for [11/23/17] at [9:00 am] If you cannot make this appointment, please call the office to reschedule ) Niyah Mcghee [ADVANCE RN PRACTITIONER] - See Instructions ( Your appointment has been scheduled for [11/12/17] at [10:30 am] If you cannot make this appointment, please call the office to reschedule ) Royal Cisse MD [Primary Care Provider] - See Instructions ( Your appointment has been scheduled for [11/13/17] at [1:30 pm] If you cannot make this appointment, please call the office to reschedule ) - Discharge Instructions Patient Printed Instructions: Warfarin (By mouth) Additional Instructions: PREVENA Single Use Negative Wound Therapy System Caregiver Instruction Sheet 1. A Prevena dressing system was applied to the chest incision during surgery , to promote wound healing. It works via a suction device (negative pressure wound therapy) to remove low to moderate levels of exudate (drainage) and infectious materials. We recommend that the device stay in place for up to seven days, from day of surgery. 2. Day of Surgery___10/22/17 Day of Removal __10/29/17 3. The dressing should only be removed by a health certified caregiver. Please arrange removal of device to coincide with Home Health visit and or with Nursing staff at Rehab 4. If skin reddening or irritation of skin occurs, or excessive drainage, please notify the Cardiovascular Surgeons office at [phone]. 5. Light showering is permissible; however the pump should be disconnected and placed in safe location, where it will not get wet. The dressing should not be exposed to direct spray or submerged in water. No bath tub / shower only. Ensure the end of the tubing attached to the dressing is facing down so that water does not enter the top of the tube. 6. To remove Prevena dressing: press purple button to turn off device / remove the suction. Then disconnect the tubing from the pump. The fixation strips should be stretched away from the skin and the dressing lifted at one corner and peeled back until it has been fully removed. 7. After removal, it is ok to shower daily using liquid dial soap and clean wash cloth, rinse and pat dry, and leave incision open to air dry. For any concerns regarding Prevena dressing, and or wounds, please contact Gretchen Ramirez, patient navigator at [phone] or notify the Cardiovascular Surgeons office at [phone]. Post op 2D Echocardiogram scheduled for 11/09/17 at 10:15 am-CP:Rosa There will be a $10 co-pay - Post Discharge Care Plan Care Plan Goals: Your Health Problems: Goals to Promote Your Health: * To prevent worsening of your condition * To maintain your health at the optimal level Directions to Meet Your Goals: * Take your medications as prescribed * Follow your dietary instruction * Follow activity as directed * Keep your appointments as scheduled * Take your immunizations and boosters as scheduled * If your symptoms worsen call your PCP * If no PCP go to Urgent Care or Emergency Room Smoking is dangerous to your health. Avoid second hand smoke. You may reach the 24-hour crisis hotline for domestic abuse at .
[2017-10-27 18:00] VITALS: O2SAT 95
[2017-10-27 18:03] VITALS: BP 125/61; PULSE 72; TEMP 98.6
[2017-10-27 18:18] VITALS: RESP 16
== END 2017-10-25 14:09 | disposition home health service (06) ==
LOC: HSDI 05:36 → HCVI 12:19 → HCPC 10-23 13:58
PROVIDERS: ADMIT Thoracic Surgery (Cardiothoracic Vascular Surgery); ATTEND Thoracic Surgery (Cardiothoracic Vascular Surgery)